=== PATIENT | female | born 1965 ===

== ENCOUNTER 2017-02-19 06:28 | Day surgery (SDC) | payer MEDICARE, OTHER ==
[2017-02-18 12:13] VITALS: BMI 40.7
[2017-02-19] MEDS ORDERED: Lidocaine 2% Inj (20ml) ONE (06:45)
[2017-02-19] MEDS ORDERED: Iohexol 350 MG/100 ML VIAL ONE (06:47)
[2017-02-19] MEDS ORDERED: Iohexol 350mgl/ml 50 ML ONE (06:47)
[2017-02-19] MEDS ORDERED: Phenylephrine 10 mg/ml Inj ONE (06:47)
[2017-02-19] MEDS ORDERED: DiphenhydrAMINE 50 mg/ml Inj ONE (06:47)
[2017-02-19] MEDS ORDERED: Nitroglycerin 50mg in D5W 0 MG/0 ML BOTTLE IV ONE (06:48)
[2017-02-19] MEDS ORDERED: Famotidine 20mg/50ml 20 MG/50 ML BAG IVPB ONE (06:48)
[2017-02-19] MEDS ORDERED: Midazolam 2 MG/2 ML VIAL ONE ×2 (07:16→07:39)
[2017-02-19] MEDS ORDERED: Sodium Chloride 0.9% 1,000 ML IV SCH (08:00)
[2017-02-19 08:24] VITALS: TEMP 97.7
--- NOTE | 2017-02-19 09:21 | CARDCATH ---
PROCEDURE DATE: 02/19/2017 HISTORY: This is a 51-year-old woman with a history of hypertension and diabetes who had recent exer tional dyspnea. Stress test showed a possible anterior ischemia and a catheterization was recommende d. INDICATION: Abnormal stress test, exertional dyspnea, multiple cardiac risk factors FINDINGS: HEMODYNAMICS: The aortic pressure was 140/76 with left ventricular pressure of 140/24. CORONARY ANATOMY: 1. The left main stem was normal. 2. The left anterior descending artery and its branches were normal as well. 3. The left circumflex artery gave rise to 1 large obtuse marginal branch which was normal. The res t of the circumflex had no significant disease. 4. The right coronary artery was large and dominant and normal. LEFT VENTRICULOGRAPHY: A hand injection was performed in the left ventricle revealing normal wall mo tion with an ejection fraction of 60%. There was no aortic valve gradient noted on catheter pullback . Mitral regurgitation was not assessed. RIGHT FEMORAL ARTERIOGRAPHY: A right femoral arteriogram revealed no evidence of significant disease and appropriate level of arterial puncture. The puncture site was then closed with deployment of an Angio-Seal device. CONCLUSION: 1. Normal coronary arteries. 2. Normal left ventricular systolic function. 3. Elevated left ventricular end-diastolic pressure. RECOMMENDATIONS: At this time, aggressive risk factor control, exercise and weight loss are recommen ded. Followup will be arranged. Mike Farias MD cc:Sim Perales DO [id number] TT: 02/19/2017 09:21:15 in
[2017-02-19 10:05] VITALS: O2SAT 95
[2017-02-19 10:45] VITALS: BP 129/86; PULSE 87; RESP 18
== END 2017-02-19 12:05 | disposition home or self-care (01) ==
LOC: CATH 06:28
PROVIDERS: ATTEND Internal Medicine Cardiovascular Disease
DX: R06.00 Dyspnea, unspecified (principal); R94.39 Abnormal result of other cardiovascular function study; I10 Essential (primary) hypertension; E11.9 Type 2 diabetes mellitus without complications
CPT/HCPCS: 36415; 86850; 86900; 93458; 99152; C1760; C1769; C2629; J1200; J1644; J2250; J2930; J3010; J7040 ×2; Q9967